=== PATIENT | male | born 1955 | race Caucasian/White ===

== ENCOUNTER 2025-10-02 03:13 | Emergency (ER) | payer MEDICARE ==
[~2025-10-02] VITALS: Ht 177.8 cm; Wt 85.5 kg
[2025-10-02] MEDS: ACETAMINOPHEN *IV* 1,000 MG in IV 1 EA IV ONE (03:48)
[2025-10-02] MEDS: KETOROLAC 30 MG/ML 1 ML VIAL IV ONE (03:49)
[2025-10-02] MEDS: dexAMETHasone 4 MG/ML 1 ML VIAL IV ONE (03:50)
[2025-10-02] MEDS: MAG SULF 1GM/100ML (MAG RUN) 1 GM in IV 1 EA IV ONE (03:54)
[2025-10-02] MEDS ORDERED: FOLI1TAB11 PO (04:00)
[2025-10-02] MEDS ORDERED: FINA5TAB2 PO (04:00)
[2025-10-02] MEDS ORDERED: METH2.5T48 PO (04:00)
[2025-10-02] MEDS ORDERED: ISOVUE-370 76% 100 ML VIAL As Ordered ONE (04:42)
[2025-10-02 06:51] VITALS: BP 190/98
[2025-10-02] MEDS: amLODIPine 10 MG TAB PO ONE (06:51)
[2025-10-02] MEDS: hydrALAZINE 20 MG/ML 1 ML VIAL IV STA (06:51)
[2025-10-02] MEDS: NS (Normal Saline) 0.9% 1,000 ML IV ONE (07:30)
[2025-10-02 08:32] LABS: BASO # 0.1 10^3/uL (0.0-0.2); BASO % 0.7 % (0.0-1.0); EOS # 0.0 10^3/uL (0.0-0.5); EOS % 0.2 % (0.0-3.0); LYMPH # 0.6 10^3/uL (1.5-5.0); LYMPH % 5.5 % (24.0-44.0); MONO # 0.1 10^3/uL (0.0-0.8); MONO % 0.8 % (2.0-8.0); NEUTROPHILS # 9.8 10^3/uL (1.5-8.5); NEUTROPHILS % 92.5 % (36.0-66.0); PLATELET COUNT, AUTOMATED 455 10^3/uL (150-450)
[2025-10-02 09:02] LABS: ALT/SGPT 25 U/L (7.0-40); AST/SGOT 18 U/L (<34); C REACTIVE PROTEIN QUANTITATIV < 0.50 MG/DL (<1.0); CALCIUM LEVEL 8.9 MG/DL (8.3-10.6); CARBON DIOXIDE LEVEL 23 MMOL/L (20-31); CHLORIDE LEVEL 109 MMOL/L (98-107); CREATININE FOR GFR 0.82 MG/DL (0.70-1.30); GLOMERULAR FILTRATION RATE > 90.0 (>49); MAGNESIUM LEVEL 2.5 MG/DL (1.8-2.4); POTASSIUM SERUM 4.6 MMOL/L (3.5-5.1); SODIUM LEVEL 142 MMOL/L (136-145)
[2025-10-02 09:12] LABS: INR 1.01
[2025-10-02] MEDS ORDERED: HOME MED LIST COMPLETE! XX SCH (10:25)
[2025-10-02 12:25] VITALS: BP 167/79; TEMP 98.2; O2SAT 98
== END 2025-10-02 12:28 | disposition short-term general hospital (02) ==
LOC: EDBD 03:13 → M ED 03:13
DX: R51.9 Headache, unspecified (principal); I16.0 Hypertensive urgency; I60.2 Nontraumatic subarachnoid hemorrhage from anterior communicating artery; J98.11 Atelectasis; N40.0 Benign prostatic hyperplasia without lower urinary tract symptoms; F10.10 Alcohol abuse, uncomplicated; M06.9 Rheumatoid arthritis, unspecified; Z79.899 Other long term (current) drug therapy
CPT/HCPCS: 70450; 70496; 70498; 80047; 80053; 83735; 85025; 85610; 85652; 85730; 86140; 96361; 96374; 96375; 99285; J0134; J0360; J1100; J1885; J2765; J3475; Q9967